=== PATIENT | male | born 1970 | race Caucasian/White ===

== ENCOUNTER 2018-05-08 04:14 | Emergency (ER) | payer MEDICAID ==
[2018-05-08] MEDS: HYDROCODONE/APAP (5/325) TAB PO (05:12)
[2018-05-08] MEDS: SOD CHLORIDE 0.9% 1,000 ML IV ×2 (05:57→07:13)
[2018-05-08] MEDS: ONDANSETRON 4 MG INJ IV (05:57)
[2018-05-08] MEDS: morphine 4 MG/ML VIAL IV (05:57)
[2018-05-08 06:14] LABS: ADD MAN DIFF? NO
[2018-05-08 06:18] LABS: BASOPHIL # 0.1 10^3/ul (0.0-0.1); BASOPHILS % 0.5 % (0.0-2.0); EOSINOPHILS # 0.2 10^3/ul (0.0-0.5); EOSINOPHILS % 1.5 % (0.0-7.0); HEMATOCRIT 32.2 % (42.0-52.0); HEMOGLOBIN 10.2 g/dl (14.0-18.0); LYMPHOCYTES # 1.1 10^3/ul (0.8-2.9); LYMPHOCYTES % 9.6 % (15.0-51.0); MEAN CORPUSCULAR HEMOGLOBIN 27.5 pg (29.0-33.0); MEAN CORPUSCULAR HGB CONC 31.7 g/dl (32.0-37.0); MEAN CORPUSCULAR VOLUME 86.8 fl (82.0-101.0); MEAN PLATELET VOLUME 10.6 fl (7.4-10.4); MONOCYTE # 1.2 10^3/ul (0.3-0.9); MONOCYTES % 10.6 % (0.0-11.0); NEUTROPHIL # 8.5 10^3/ul (1.6-7.5); NEUTROPHILS % 77.4 % (39.0-77.0); PLATELET COUNT 325 10^3/UL (140-415); RED BLOOD COUNT 3.71 10^6/ul (4.70-6.10); RED CELL DISTRIBUTION WIDTH 16.3 % (11.5-14.5)
[2018-05-08 06:18] LABS: WHITE BLOOD COUNT 10.9 10^3/ul (4.8-10.8)
[2018-05-08 06:47] LABS: ALANINE AMINOTRANSFERASE 24 IU/L (13-69); ALBUMIN 4.2 g/dl (3.3-4.9); ALBUMIN/GLOBULIN RATIO 0.93; ALKALINE PHOSPHATASE 129 IU/L (42-121); ANION GAP 17 (8-16); ASPARTATE AMINO TRANSFERASE 21 IU/L (15-46); BILIRUBIN,INDIRECT 0.2 mg/dl (0-1.1); BILIRUBIN,TOTAL 0.2 mg/dl (0.2-1.3); BLOOD UREA NITROGEN 35 mg/dl (7-20); CALCIUM 8.9 mg/dl (8.4-10.2); CARBON DIOXIDE 24 mmol/L (21-31); CHLORIDE 98 mmol/L (97-110); CREATININE 1.78 mg/dl (0.61-1.24); GLUCOSE 361 mg/dl (70-220); POTASSIUM 4.1 mmol/L (3.5-5.1); SODIUM 135 mmol/L (135-144); TOTAL PROTEIN 8.7 g/dl (6.1-8.1)
[2018-05-08] MEDS: CLINDAMYCIN 300 MG INJ IVPB (06:55)
[2018-05-08] MEDS: INSULIN LISPRO 100 UNIT/ML VIAL SC (07:33)
[2018-05-08] MEDS: HYDROmorphONE 0.5 MG/0.5 ML SYG IM (07:36)
== END 2018-05-08 08:15 | disposition home or self-care (01) ==
LOC: FTE 08:15
DX: M79.642 Pain in left hand (principal); L03.114 Cellulitis of left upper limb; E11.9 Type 2 diabetes mellitus without complications; Z79.4 Long term (current) use of insulin
CPT/HCPCS: 73130; 73130-LT; 80053; 82962; 85025; 96372; 96374; 96375; 99284-25

== ENCOUNTER 2018-05-11 05:04 | Emergency (ER) | payer MEDICAID ==
[2018-05-11] MEDS: SOD CHLORIDE 0.9% 1,000 ML IV (05:35)
[2018-05-11] MEDS: SODIUM CHLORIDE 0.9% 1L BAG IV* (05:56)
[2018-05-11] MEDS: HYDROmorphONE 1 MG/ML SYG IV ×2 (05:59→08:08)
[2018-05-11] MEDS: ONDANSETRON 4 MG INJ IV ×2 (05:59→08:08)
[2018-05-11 06:22] LABS: ADD MAN DIFF? NO
[2018-05-11 06:25] LABS: WHITE BLOOD COUNT 14.2 10^3/ul (4.8-10.8)
[2018-05-11 06:25] LABS: BASOPHIL # 0.1 10^3/ul (0.0-0.1); BASOPHILS % 0.4 % (0.0-2.0); EOSINOPHILS # 0.2 10^3/ul (0.0-0.5); EOSINOPHILS % 1.4 % (0.0-7.0); HEMATOCRIT 28.5 % (42.0-52.0); IMMATURE GRANS #M 0.07 10^3/ul; IMMATURE GRANS % (M) 0.5 %; LYMPHOCYTES # 1.5 10^3/ul (0.8-2.9); LYMPHOCYTES % 10.5 % (15.0-51.0); MEAN CORPUSCULAR HEMOGLOBIN 26.8 pg (29.0-33.0); MEAN CORPUSCULAR HGB CONC 31.6 g/dl (32.0-37.0); MEAN CORPUSCULAR VOLUME 84.8 fl (82.0-101.0); MEAN PLATELET VOLUME 9.7 fl (7.4-10.4); MONOCYTE # 1.3 10^3/ul (0.3-0.9); MONOCYTES % 9.4 % (0.0-11.0); NEUTROPHIL # 11.1 10^3/ul (1.6-7.5); NEUTROPHILS % 77.8 % (39.0-77.0); PLATELET COUNT 364 10^3/UL (140-415); RED BLOOD COUNT 3.36 10^6/ul (4.70-6.10); RED CELL DISTRIBUTION WIDTH 16.9 % (11.5-14.5)
[2018-05-11 06:42] LABS: ETHANOL < 10.0 mg/dl
[2018-05-11 06:42] LABS: AMYLASE < 30 U/L (11-123)
[2018-05-11] MEDS: PIPER-TAZO 3.375 GM IV (PMX) 100 ML IVPB (06:44)
[2018-05-11 06:48] LABS: ALANINE AMINOTRANSFERASE 22 IU/L (13-69); ALBUMIN 3.4 g/dl (3.3-4.9); ALBUMIN/GLOBULIN RATIO 0.73; ALKALINE PHOSPHATASE 167 IU/L (42-121); ANION GAP 15 (8-16); ASPARTATE AMINO TRANSFERASE 18 IU/L (15-46); BILIRUBIN,INDIRECT 0.1 mg/dl (0-1.1); BILIRUBIN,TOTAL 0.1 mg/dl (0.2-1.3); BLOOD UREA NITROGEN 37 mg/dl (7-20); CALCIUM 9.1 mg/dl (8.4-10.2); CARBON DIOXIDE 24 mmol/L (21-31); CHLORIDE 105 mmol/L (97-110); CREATININE 1.71 mg/dl (0.61-1.24); GLUCOSE 265 mg/dl (70-220); LIPASE 48 U/L (23-300); POTASSIUM 4.3 mmol/L (3.5-5.1); SODIUM 140 mmol/L (135-144)
[2018-05-11 06:53] LABS: TROPONIN-I < 0.010 ng/ml (0.000-0.120)
[2018-05-11] MEDS: CLINDAMYCIN 900 MG/D5W (PMX) 50 ML IVPB (06:54)
[2018-05-11 07:02] LABS: LACTIC ACID 1.3 mmol/L (0.5-2.0)
[2018-05-11] MEDS: VANCOMYCIN 1 GM (PMX) 250 ML IVPB (07:36)
[2018-05-11] MEDS: INSULIN LISPRO 100 UNIT/ML VIAL SC (07:42)
== END 2018-05-11 12:06 | disposition left against medical advice (07) ==
LOC: E/R 05:04
DX: M65.842 Other synovitis and tenosynovitis, left hand (principal); E11.65 Type 2 diabetes mellitus with hyperglycemia; Z79.4 Long term (current) use of insulin
CPT/HCPCS: 80053; 80307; 82150; 82962; 83605; 83690; 84484; 85025; 86850; 86900; 86901; 87040; 96372; 96374; 96375; 96376; 99291-25